=== PATIENT | female | born 1980 | race Caucasian/White ===

== ENCOUNTER 2019-06-03 09:20 | Emergency (ER) | payer OTHER ==
[~2019-06-03] VITALS: Ht 157.5 cm; Wt 68.0 kg
[2019-06-03] MEDS ORDERED: CIPRO250 MG PO (09:53)
[2019-06-03] MEDS ORDERED: MACROBID 100 M100 MG PO (11:07)
== END 2019-06-03 11:20 | disposition home or self-care (01) ==
LOC: ER 09:20
DX: N39.0 Urinary tract infection, site not specified (principal)